=== PATIENT | male | born 1970 | race Caucasian/White ===

== ENCOUNTER 2018-09-30 12:51 | Emergency (ER) | payer SELFPAY ==
[~2018-09-30] VITALS: Ht 188 cm; Wt 120.9 kg
[2018-09-30 12:55] VITALS: BP 140/98
== END 2018-09-30 13:45 | disposition home or self-care (01) ==
LOC: ED 13:30
DX: K02.9 Dental caries, unspecified (principal); F17.200 Nicotine dependence, unspecified, uncomplicated
CPT/HCPCS: 99283

== ENCOUNTER 2021-01-13 16:04 | Inpatient (IN) | payer MEDICAID ==
[~2021-01-13] VITALS: Ht 185.4 cm; Wt 117.5 kg
[2021-01-13 17:08] LABS: BASOPHILS % (AUTO) 0 % (0-1); EOSINOPHILS % (AUTO) 1 % (1-7); LYMPHOCYTES % (AUTO) 14 % (22-44); MEAN CORPUSCULAR HEMOGLOBIN 29.1 pg (27.5-34.5); MEAN CORPUSCULAR HGB CONC 33.3 g/dL (33.2-36.2); MEAN PLATELET VOLUME 7.8 fL (7.4-10.4); MONOCYTES % (AUTO) 11 % (2-9); NEUTROPHILS % (AUTO) 74 % (42-75); PLATELET COUNT 204 x10^3/uL (130-400); RED BLOOD COUNT 4.85 x10^6/uL (4.38-5.82); RED CELL DISTRIBUTION WIDTH 14.5 % (9.4-14.8)
[2021-01-13 17:09] LABS: ALBUMIN 3.8 g/dL (3.4-5.0); ANION GAP 6 mmol/L (5-15); CALCIUM 8.5 mg/dL (8.5-10.1); CHLORIDE 110 mmol/L (98-107); CREATININE 0.92 mg/dL (0.7-1.3)
[2021-01-13 17:10] LABS: MD NO
[2021-01-13] MEDS ORDERED: VANCOMYCIN PER PHARMACY MC PRN ×2 (17:30→21:00)
[2021-01-13] MEDS ORDERED: CEFAZOLIN PMX 1GM/50ML 50 ML IV ONE (17:30)
[2021-01-13] MEDS ORDERED: CEFAZOLIN PMX 1GM/50ML 50 ML ONE (17:33)
[2021-01-13] MEDS ORDERED: VANCOMYCIN 2,400 MG in SODIUM CHLORIDE 0.9% 500 ML IV ONE (18:00)
[2021-01-13] MEDS ORDERED: OMNIPAQUE 350 MG/ML, 100ML BOTTLE ONE (18:13)
--- NOTE | 2021-01-13 18:44 | NUR ---
PT STATES AROUND 4AM HIS LEFT ARM WAS ACHING. THROUGHOUT THE DAY HIS LEFT ELBOW AND DOWN FOREARM STARTED TO SWELL UP CAUSING PT A LOT OF PAIN. REDNESS NOTED. PT REPORTS HE THINKS SOMETHING HAS BIT HIM. PT IN BED IN GOWN WITH CONT SPO2, BP Q 30 MIN, SIDE RAILS UP X2, CALL LIGHT IN REACH. PT AGREES TO ADMITION.
[2021-01-13] MEDS ORDERED: IBUPROFEN 800 MG TABLET PO PRN (20:00)
[2021-01-13 20:29] VITALS: BP 145/87
[2021-01-13] MEDS: NICOTINE 14MG/24 HR PATCH.TD24 TD SCH (20:35)
[2021-01-13] MEDS ORDERED: LIDODERM 5% PATCH TD PRN (21:00)
[2021-01-13] MEDS ORDERED: ENALAPRILAT 1.25 MG/ML, 2ML IVPush PRN (21:00)
[2021-01-13] MEDS ORDERED: DOCUSATE 100 MG CAPSULE PO PRN (21:00)
[2021-01-13] MEDS ORDERED: MELATONIN 5 MG TABLET PO PRN (21:00)
[2021-01-13] MEDS ORDERED: ACETAMINOPHEN 325 MG TABLET PO PRN (21:00)
[2021-01-13] MEDS ORDERED: PHARMACOKINETIC CONSULTATION MC ONE (21:30)
[2021-01-13] MEDS ORDERED: PHARMACOKINETIC MONITORING MC PRN (21:30)
[2021-01-13] MEDS: ENOXAPARIN 40 MG/0.4 ML SQ SCH (21:54)
[2021-01-14 01:19] VITALS: BP 145/91
[2021-01-14] MEDS ORDERED: CEFTRIAXONE PMX 2GM/50ML 50 ML IVPB SCH (03:00)
[2021-01-14 05:34] LABS: BASOPHILS % (AUTO) 0 % (0-1); EOSINOPHILS % (AUTO) 1 % (1-7); LYMPHOCYTES % (AUTO) 17 % (22-44); MEAN CORPUSCULAR HEMOGLOBIN 29.2 pg (27.5-34.5); MEAN CORPUSCULAR HGB CONC 33.6 g/dL (33.2-36.2); MEAN PLATELET VOLUME 8.1 fL (7.4-10.4); MONOCYTES % (AUTO) 11 % (2-9); NEUTROPHILS % (AUTO) 71 % (42-75); PLATELET COUNT 180 x10^3/uL (130-400); RED BLOOD COUNT 4.72 x10^6/uL (4.38-5.82)
[2021-01-14 05:37] LABS: MD NO
[2021-01-14 05:50] LABS: CHLORIDE 108 mmol/L (98-107)
[2021-01-14 05:55] LABS: ANION GAP 6 mmol/L (5-15); CALCIUM 8.7 mg/dL (8.5-10.1); CREATININE 0.84 mg/dL (0.7-1.3)
[2021-01-14] MEDS: VANCOMYCIN 1,900 MG in SODIUM CHLORIDE 0.9% 250 ML IV SCH ×2 (05:58→17:30)
[2021-01-14 07:13] VITALS: BP 158/94
[2021-01-14 13:50] VITALS: BP 108/69
[2021-01-14] MEDS: AMPICILLIN/SULBACTAM 3 GM in SODIUM CHLORIDE 0.9% 100 ML IV SCH ×2 (14:34→21:43)
[2021-01-14 18:41] VITALS: BP 129/82
[2021-01-14] MEDS: NICOTINE 14MG/24 HR PATCH.TD24 TD SCH (21:43)
[2021-01-14] MEDS: ENOXAPARIN 40 MG/0.4 ML SQ SCH (21:44)
[2021-01-15 01:00] VITALS: BP 138/87
[2021-01-15 05:29] LABS: BASOPHILS % (AUTO) 1 % (0-1); EOSINOPHILS % (AUTO) 0 % (1-7); LYMPHOCYTES % (AUTO) 13 % (22-44); MEAN CORPUSCULAR HEMOGLOBIN 29.6 pg (27.5-34.5); MEAN CORPUSCULAR HGB CONC 34.3 g/dL (33.2-36.2); MONOCYTES % (AUTO) 11 % (2-9); NEUTROPHILS % (AUTO) 76 % (42-75); PLATELET COUNT 191 x10^3/uL (130-400); RED BLOOD COUNT 4.73 x10^6/uL (4.38-5.82); RED CELL DISTRIBUTION WIDTH 13.9 % (9.4-14.8)
[2021-01-15 05:31] LABS: MD NO
[2021-01-15] MEDS: AMPICILLIN/SULBACTAM 3 GM in SODIUM CHLORIDE 0.9% 100 ML IV SCH ×3 (05:32→21:28)
[2021-01-15 05:43] LABS: VANCOMYCIN,TROUGH 9.7 mcg/mL (5.0-10.0)
[2021-01-15] MEDS: VANCOMYCIN 1,900 MG in SODIUM CHLORIDE 0.9% 250 ML IV SCH (06:09)
[2021-01-15 06:10] LABS: HCT (SEDRATE) 40.8 % (39.2-51.8)
[2021-01-15 08:15] VITALS: BP 140/74
[2021-01-15] MEDS ORDERED: HYDROcodone/APAP 5/325 TABLET PO PRN (12:00)
[2021-01-15 13:11] VITALS: BP 128/78
[2021-01-15] MEDS: NICOTINE 14MG/24 HR PATCH.TD24 TD SCH (13:58)
[2021-01-15] MEDS: VANCOMYCIN 2,000 MG in SODIUM CHLORIDE 0.9% 500 ML IV SCH (15:18)
[2021-01-15] MEDS ORDERED: NICOTINE 14MG/24 HR PATCH.TD24 TD SCH (20:00)
[2021-01-15 20:35] VITALS: BP 135/75
[2021-01-15] MEDS ORDERED: ONDANSETRON ODT 4 MG PO PRN (21:00)
[2021-01-15] MEDS: ENOXAPARIN 40 MG/0.4 ML SQ SCH (21:27)
[2021-01-16 01:47] VITALS: BP 147/76
[2021-01-16] MEDS: VANCOMYCIN 2,000 MG in SODIUM CHLORIDE 0.9% 500 ML IV SCH ×2 (03:23→15:10)
[2021-01-16 05:42] LABS: BASOPHILS % (AUTO) 0 % (0-1); EOSINOPHILS % (AUTO) 1 % (1-7); LYMPHOCYTES % (AUTO) 14 % (22-44); MEAN CORPUSCULAR HEMOGLOBIN 29.2 pg (27.5-34.5); MEAN CORPUSCULAR HGB CONC 33.3 g/dL (33.2-36.2); MEAN PLATELET VOLUME 7.7 fL (7.4-10.4); MONOCYTES % (AUTO) 10 % (2-9); NEUTROPHILS % (AUTO) 76 % (42-75); PLATELET COUNT 195 x10^3/uL (130-400); RED BLOOD COUNT 4.85 x10^6/uL (4.38-5.82)
[2021-01-16 05:43] LABS: MD NO
[2021-01-16 05:54] LABS: ANION GAP 6 mmol/L (5-15); CHLORIDE 108 mmol/L (98-107)
[2021-01-16] MEDS: AMPICILLIN/SULBACTAM 3 GM in SODIUM CHLORIDE 0.9% 100 ML IV SCH ×3 (06:15→20:49)
[2021-01-16 06:59] VITALS: BP 123/64
[2021-01-16] MEDS: NICOTINE 14MG/24 HR PATCH.TD24 TD SCH (13:04)
[2021-01-16 13:32] VITALS: BP 136/76
[2021-01-16 19:30] VITALS: BP 147/84
[2021-01-16] MEDS ORDERED: MELATONIN 5 MG TABLET PO PRN (20:00)
[2021-01-16] MEDS: ENOXAPARIN 40 MG/0.4 ML SQ SCH (20:50)
[2021-01-17 00:45] VITALS: BP 128/70
[2021-01-17] MEDS: HYDROcodone/APAP 5/325 TABLET PO PRN ×3 (02:45→20:53)
[2021-01-17] MEDS: VANCOMYCIN 2,000 MG in SODIUM CHLORIDE 0.9% 500 ML IV SCH ×2 (02:48→15:02)
[2021-01-17] MEDS: AMPICILLIN/SULBACTAM 3 GM in SODIUM CHLORIDE 0.9% 100 ML IV SCH ×3 (05:28→20:52)
[2021-01-17 05:37] LABS: CHLORIDE 110 mmol/L (98-107)
[2021-01-17 05:44] LABS: BASOPHILS % (AUTO) 0 % (0-1); EOSINOPHILS % (AUTO) 1 % (1-7); LYMPHOCYTES % (AUTO) 18 % (22-44); MEAN CORPUSCULAR HEMOGLOBIN 29.1 pg (27.5-34.5); MEAN CORPUSCULAR HGB CONC 33.4 g/dL (33.2-36.2); MEAN PLATELET VOLUME 7.8 fL (7.4-10.4); MONOCYTES % (AUTO) 10 % (2-9); NEUTROPHILS % (AUTO) 71 % (42-75); PLATELET COUNT 220 x10^3/uL (130-400); RED BLOOD COUNT 4.78 x10^6/uL (4.38-5.82); RED CELL DISTRIBUTION WIDTH 13.7 % (9.4-14.8)
[2021-01-17 05:50] LABS: ANION GAP 4 mmol/L (5-15); CREATININE 0.82 mg/dL (0.7-1.3)
[2021-01-17 06:04] LABS: MD NO
[2021-01-17 06:36] LABS: HCT (SEDRATE) 41.6 % (39.2-51.8)
[2021-01-17 08:14] VITALS: BP 153/91
[2021-01-17] MEDS: ENOXAPARIN 40 MG/0.4 ML SQ SCH ×2 (08:22→20:52)
[2021-01-17 12:26] VITALS: BP 166/90
[2021-01-17] MEDS: NICOTINE 14MG/24 HR PATCH.TD24 TD SCH (13:29)
[2021-01-17 18:37] VITALS: BP 137/66
[2021-01-18 00:49] VITALS: BP 132/86
[2021-01-18] MEDS: VANCOMYCIN 2,000 MG in SODIUM CHLORIDE 0.9% 500 ML IV SCH ×2 (03:07→14:59)
[2021-01-18] MEDS: HYDROcodone/APAP 5/325 TABLET PO PRN ×2 (04:13→13:24)
[2021-01-18] MEDS: AMPICILLIN/SULBACTAM 3 GM in SODIUM CHLORIDE 0.9% 100 ML IV SCH ×2 (05:14→13:24)
[2021-01-18 05:46] LABS: BASOPHILS % (AUTO) 0 % (0-1); EOSINOPHILS % (AUTO) 2 % (1-7); LYMPHOCYTES % (AUTO) 20 % (22-44); MEAN CORPUSCULAR HEMOGLOBIN 29.2 pg (27.5-34.5); MEAN CORPUSCULAR HGB CONC 33.7 g/dL (33.2-36.2); MEAN PLATELET VOLUME 7.5 fL (7.4-10.4); MONOCYTES % (AUTO) 9 % (2-9); NEUTROPHILS % (AUTO) 69 % (42-75); PLATELET COUNT 245 x10^3/uL (130-400); RED CELL DISTRIBUTION WIDTH 13.6 % (9.4-14.8)
[2021-01-18 05:52] LABS: MD NO
[2021-01-18 05:54] LABS: ANION GAP 8 mmol/L (5-15); CALCIUM 8.6 mg/dL (8.5-10.1); CHLORIDE 109 mmol/L (98-107); CREATININE 0.87 mg/dL (0.7-1.3)
[2021-01-18] MEDS: ENOXAPARIN 40 MG/0.4 ML SQ SCH (08:07)
[2021-01-18 08:32] VITALS: BP 157/94
[2021-01-18 13:06] VITALS: BP 161/100
[2021-01-18] MEDS: NICOTINE 14MG/24 HR PATCH.TD24 TD SCH (13:24)
[2021-01-18] MEDS ORDERED: HYDR-1067 PO (14:11)
[2021-01-18] MEDS ORDERED: NICO-486 TD (14:11)
[2021-01-18] MEDS ORDERED: AMOX1TAB64 PO (14:11)
[2021-01-18] MEDS ORDERED: AMLO-150 PO (14:11)
[2021-01-18] MEDS ORDERED: VANCOMYCIN 2,000 MG in SODIUM CHLORIDE 0.9% 500 ML IV SCH (15:30)
[2021-01-18] MEDS ORDERED: AMPICILLIN/SULBACTAM 3 GM in SODIUM CHLORIDE 0.9% 100 ML IV SCH ×2 (15:30→21:30)
[2021-01-18 17:21] VITALS: BP 145/75
[2021-01-19] MEDS ORDERED: VANCOMYCIN 2,000 MG in SODIUM CHLORIDE 0.9% 500 ML IV SCH (15:30)
== END 2021-01-18 17:42 | disposition home or self-care (01) | DRG 872 ==
LOC: ED 19:00 → EDIP 19:10 → 3N 19:40
PROVIDERS: ADMIT Family Medicine; ATTEND Internal Medicine
DX: A41.9 Sepsis, unspecified organism (principal); L03.114 Cellulitis of left upper limb; F15.10 Other stimulant abuse, uncomplicated; M70.22 Olecranon bursitis, left elbow; F17.210 Nicotine dependence, cigarettes, uncomplicated; E66.9 Obesity, unspecified; Z68.34 Body mass index [BMI] 34.0-34.9, adult; Z59.0 Homelessness; Z63.8 Other specified problems related to primary support group; Z71.6 Tobacco abuse counseling; Z71.51 Drug abuse counseling and surveillance of drug abuser
CPT/HCPCS: 36415; 80048; 80202; 82040; 83605; 83735; 84100; 85025; 85651; 86140; 87040; 99285; G0378; J0295; J0690; J0696; J1650; J3370; Q0162; Q9967; J7040; J7050